=== PATIENT | male | born 1960 | race Caucasian/White ===

== ENCOUNTER 2017-02-07 16:27 | Emergency (ER) | payer OTHER ==
[2017-02-07 16:36] VITALS: BP 135/95; PULSE 83; TEMP 98.2; BMI 27.3
[2017-02-07] MEDS ORDERED: ACETAMINOPHEN 500 MG TABLET (FP) ONE (18:11)
[2017-02-07] MEDS ORDERED: ACETAMINOPHEN 500 MG TABLET (FP) PO ONE (18:20)
[2017-02-07] MEDS ORDERED: DIPHTH,PERTUSS(ACELL),TET 0.5 ML DISP.SYRIN IM ONE (18:20)
--- NOTE | 2017-02-07 18:25 | PDOC ---
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 Patient reports having pain to right medial distal thigh and left posterior calf. Patient has noticeable swelling to right medial distal thigh. Patient has multiple abrasions to bilateral lower thighs and legs. Patient does not think he is up-to-date with tetanus/diptheria is unsure will update today. Pain in right lower thigh medially is a 5 and left calf is a 5 aching in nature. He denies hitting his head or back or any other injuries. 02/07/17 18:41 02/07/17 20:20 Occurred: reports: this afternoon Severity: reports: moderate Pain Location: reports: lower extremity (rt. medial thigh, left calf ) Method of Injury: Yes: fall (fall off bumper of fire truck hitting bumper as he fell abrasions b/l lower extremities) Modifying Factors: improves with: None Loss of Consciousness: no loss of consciousness Associated Symptoms (Fall): other (rt. distal medial thigh pain, multiple abrasions b/l lower legs) Past History - Past Medical History Allergies/Adverse Reactions: Allergies Allergy/AdvReac Type Severity Reaction Status Date / Time No Known Allergies Allergy Verified 02/07/17 16:36 Home Medications: Ambulatory Orders NK [No Known Home Medication] 02/07/17 - Psycho/Social/Smoking Cessation Hx Anxiety: No Suicidal Ideation: No Smoking History: Never smoked Information on smoking cessation initiated: No Hx Alcohol Use: No Substance Use Type: None Trauma Specific PMHX - Complaint Specific PMHX Arthritis: No Back Injury: Yes Neck Injury: No Hx Sacro Iliac Joint Dysfunction: No Review of Systems - Review of Systems Able to Perform ROS?: Yes Constitutional: No: Symptoms Reported HEENTM: No: Symptoms Reported Respiratory: No: Symptoms reported Cardiac (ROS): No: Symptoms Reported ABD/GI: No: Symptoms Reported : No: Symptoms Reported Musculoskeletal: Yes: Muscle Pain (rt. distal medial thigh with swelling ), Other (left posterior calf ) Integumentary: Yes: Other (multiple abrasion lower legs b/l ) Neurological: No: Symptoms reported *Physical Exam - Vital Signs Last Vital Signs Temp Pulse Resp BP Pulse Ox 98.2 F 83 18 135/95 97 02/07/17 16:34 02/07/17 16:34 02/07/17 16:34 02/07/17 16:34 02/07/17 16:34 - Physical Exam General Appearance: Yes: Appropriately Dressed Neck: negative: Tender, Rigid, Lymphadenopathy (R), Lymphadenopathy (L), Rigidity, Tender lateral, Tender midline Respiratory/Chest: positive: Lungs Clear, Normal Breath Sounds. negative: Chest Tender, Respiratory Distress Cardiovascular: positive: Regular Rhythm, Regular Rate, S1, S2 Musculoskeletal: positive: Normal Inspection. negative: CVA Tenderness, CVA Tenderness (R), CVA Tenderness (L), Decreased Range of Motion, Muscle Spasm, Vertebral Tenderness Extremity: positive: Normal Capillary Refill, Normal Range of Motion, Tender ( rt. distal medial thigh, left posterior calf ), Swelling (rt.distal medial thigh ), Other (rt knee no crepitus, from) Integumentary: positive: Other (abrasion left posterior medial calf, left lateral lower leg, left medial thigh, right lateral thigh, rt. medial thigh, rt. lower medial and lateral legs) Neurologic: positive: Fully Oriented, Alert, Normal Response, Motor Strength 5/ 5 (arms and legs b/l ), Respond to painful stimul (legs ), Responsive. 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 Patient reports having pain to right medial distal thigh and left posterior calf. Patient has noticeable swelling to right medial distal thigh. Patient has multiple abrasions to bilateral lower thighs and legs. Patient does not think he is up-to-date with tetanus/diptheria is unsure will update today. Its that pain in right lower thigh medially is a 5 and left calf is a 5 aching in nature. He denies hitting his head or back or any other injuries. FAll off fire truck contusion rt. thigh, contusion left calf multiple abrasion distal thighs, and lower legs PLAN: TDAP 0.5 Ml IM left deltoid cleansed all abrasions with betdaine and normal saline 0.9% dried area and then applied bacitracin ointment Acetaminophen 1000 mg by mouth give due to patient not eating would not give ibuprofen *DC/Admit/Observation/Transfer Diagnosis at time of Disposition: Fall Qualifiers: Encounter type: initial encounter Qualified Code(s): W19.XXXA - Unspecified fall, initial encounter Contusion of thigh, right Qualifiers: Encounter type: initial encounter Qualified Code(s): S70.11XA - Contusion of right thigh, initial encounter Abrasion of left lower extremity Qualifiers: Encounter type: initial encounter Qualified Code(s): S80.812A - Abrasion, left lower leg, initial encounter Abrasion of thigh, right Qualifiers: Encounter type: initial encounter Qualified Code(s): S70.311A - Abrasion, right thigh, initial encounter Abrasion of lower extremity Qualifiers: Encounter type: initial encounter Laterality: unspecified laterality Qualified Code(s): S80.819A - Abrasion, unspecified lower leg, initial encounter Contusion of left calf Qualifiers: Encounter type: initial encounter Qualified Code(s): S80.12XA - Contusion of left lower leg, initial encounter - Discharge Dispostion Disposition: HOME Condition at time of disposition: Stable - Referrals Referrals: Hector Hunt [Primary Care Provider] - - Patient Instructions Additional Instructions: Past diphtheria and pertussis vaccine was updated Apply ice to right lower inner thigh area every 2 hours for at least 15 minutes each time today and tomorrow Cleanse abrasions with antibacterial soap and water pat dry and apply either bacitracin or Neosporin ointment twice daily You may take ibuprofen as needed 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
== END 2017-02-07 19:22 | disposition home or self-care (01) ==
LOC: JERFT 16:27
PROC: 3E0234Z Introduction of Serum, Toxoid and Vaccine into Muscle, Percutaneous Approach (ICD-10-PCS; principal; 2017-02-07)
DX: S70.11XA Contusion of right thigh, initial encounter (principal); S80.12XA Contusion of left lower leg, initial encounter; S80.812A Abrasion, left lower leg, initial encounter; S70.311A Abrasion, right thigh, initial encounter; Z23 Encounter for immunization; V86.41XA Person injured while boarding or alighting from ambulance or fire engine, initial encounter; Y92.414 Local residential or business street as the place of occurrence of the external cause; Y93.89 Activity, other specified; Y99.0 Civilian activity done for income or pay
CPT/HCPCS: 90715; 99281-25

== ENCOUNTER 2018-06-04 08:06 | Emergency (ER) | payer OTHER ==
[2018-06-04 08:17] VITALS: BP 115/75; PULSE 61; TEMP 98.1; BMI 25.8
--- NOTE | 2018-06-04 08:40 | PDOC ---
History of Present Illness - General Chief Complaint: Bite Stated Complaint: ALLERGIC REACTION Time Seen by Provider: 06/04/18 08:33 History Source: Patient Exam Limitations: No Limitations - History of Present Illness Initial Comments: 06/04/18 08:59 57 yr male at work was stung by bee at 6pm, called EMS this am because the area was itchy red and painful. noo diff breathiing or speaking no rash other than area of sting. 50mg benadryl IM was given via EMS. pt feels tired, notes the area feels improved. no history of allergy to bees. Past History - Past Medical History Allergies/Adverse Reactions: Allergies Allergy/AdvReac Type Severity Reaction Status Date / Time No Known Allergies Allergy Verified 06/04/18 08:16 Home Medications: Ambulatory Orders Hydrocortisone 1% Cream [Hytone 1% Cream -] 1 applic TP TID #1 tube 06/04/18 Hydrocortisone 1% Cream [Hytone 1% Cream -] 1 applic TP TID #1 tube 06/04/18 COPD: No DVT: No - Suicide/Smoking/Psychosocial Hx Smoking History: Never smoked Information on smoking cessation initiated: No Hx Alcohol Use: No Drug/Substance Use Hx: No Substance Use Type: None *Physical Exam - Vital Signs Last Vital Signs Temp Pulse Resp BP Pulse Ox 98.1 F 61 19 115/75 98 06/04/18 08:14 06/04/18 08:14 06/04/18 08:14 06/04/18 08:14 06/04/18 08:14 - Physical Exam General Appearance: Yes: Nourished, Appropriately Dressed HEENT: positive: EOMI, OLIVIA, Pharynx Normal. negative: Pharyngeal Erythema, Tonsillar Erythema Neck: positive: Supple. 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, hydrocortisone cream tid pt agrees with plan of care *DC/Admit/Observation/Transfer Diagnosis at time of Disposition: Insect bite Qualifiers: Encounter type: initial encounter Qualified Code(s): W57.XXXA - Bitten or stung by nonvenomous insect and other nonvenomous arthropods, initial encounter - Discharge Dispostion Disposition: HOME Condition at time of disposition: Improved - Prescriptions Prescriptions: Hydrocortisone 1% Cream [Hytone 1% Cream -] 1 applic TP TID #1 tube Hydrocortisone 1% Cream [Hytone 1% Cream -] 1 applic TP TID #1 tube - Referrals - Patient Instructions Printed Discharge Instructions: DI for Insect Bites and Stings Additional Instructions: apply cool compress or ice pack every 2hrs for 20 minutes apply a topical hydrocortisone cream as directed take ibuprofen 600mg every 8hrs follow with your doctor if any worsening symptoms - Post Discharge Activity Forms/Work/School Notes: Back to Work
== END 2018-06-04 09:03 | disposition home or self-care (01) ==
LOC: JERFT 08:06
DX: T14.8XXA Other injury of unspecified body region, initial encounter (principal); W57.XXXA Bitten or stung by nonvenomous insect and other nonvenomous arthropods, initial encounter; Y93.89 Activity, other specified; Y92.89 Other specified places as the place of occurrence of the external cause
CPT/HCPCS: 99281-25